=== PATIENT | male | born 1965 | race Caucasian/White ===

== ENCOUNTER 2019-06-17 20:00 | Outpatient (CLI) | payer BC, SELFPAY | END 2019-06-17 20:01 | disposition home or self-care (01) | LOC: SLEEP 06-18 09:30 | PROVIDERS: Family Provider Family Medicine; PCP Family Medicine; Visit Provider Nurse Practitioner Family | DX: G47.33 Obstructive sleep apnea (adult) (pediatric) (principal) | CPT/HCPCS: 95810; 95811 ==

== ENCOUNTER → 2019-06-23 13:11 | Outpatient (BNVA) | payer BC, SELFPAY | PROVIDERS: Family Provider Family Medicine; PCP Family Medicine; Visit Provider Internal Medicine Rheumatology | DX: L40.50 Arthropathic psoriasis, unspecified (principal); M19.90 Unspecified osteoarthritis, unspecified site; Z79.899 Other long term (current) drug therapy; M54.89 Other dorsalgia; L40.9 Psoriasis, unspecified | CPT/HCPCS: 36415; 80076; 82565; 85025; 85651; 86140; 86812; 99214 ==

== ENCOUNTER 2019-06-24 11:40 | Outpatient (CLI) | payer BC, SELFPAY ==
--- NOTE | 2019-06-24 11:52 | XR_ITS ---
WS: [id number] HAND LEFT TECHNIQUE: 3 views of the left hand CLINICAL INFORMATION: inflammatory arthritis COMPARISON: None. FINDINGS: Normal metacarpals. Normal MCP joint. Metacarpal heads are normal in appearance. Normal PIP and DIP j oints. No evidence of acute fracture or dislocation. Small radiopaque fragment second digit soft tiss ues. Radiocarpal joint: Normal. Carpal bones: Normal. XR/XR hand LT min 3V* [id number] IMPRESSION: Small radiopaque fragment second digit soft tissues. Left hand otherwise negati ve.
--- NOTE | 2019-06-24 11:52 | XR_ITS ---
WS: [id number] HAND RIGHT TECHNIQUE: 3 views of the right hand CLINICAL INFORMATION: inflammatory arthritis COMPARISON: None. FINDINGS: Normal metacarpals. Normal MCP joint. Metacarpal heads are normal in appearance. Normal PIP and DIP j oints. No evidence of acute fracture or dislocation. Radiocarpal joint: Normal. Carpal bones: Normal. XR/XR hand RT min 3V* [id number] IMPRESSION: Normal right hand.
--- NOTE | 2019-06-24 11:52 | XR_ITS ---
WS: [id number] PELVIS TECHNIQUE: 1 view(s) of the pelvis CLINICAL INFORMATION: inflammatory arthritis COMPARISON: None. FINDINGS: Mild degenerative arthritis both hips with joint space narrowing. Mild degenerative arthritis lower l umbar spine and sacroiliac joints. No acute fractures. No visualized erosive changes. XR/XR pelvis 1-2V* [id number] IMPRESSION: Mild degenerative arthritis as described above. No erosive changes.
== END 2019-06-24 11:41 | disposition home or self-care (01) ==
LOC: WPI 11:46
PROVIDERS: Family Provider Family Medicine; PCP Family Medicine; Visit Provider Internal Medicine Rheumatology
DX: M16.0 Bilateral primary osteoarthritis of hip (principal); M79.9 Soft tissue disorder, unspecified
CPT/HCPCS: 72170; 73130

== ENCOUNTER → 2019-07-08 09:42 | Outpatient (BNVA) | payer BC, SELFPAY | PROVIDERS: Family Provider Family Medicine; PCP Family Medicine; Referring Provider Family Medicine; Visit Provider Internal Medicine Rheumatology | DX: L40.50 Arthropathic psoriasis, unspecified (principal); Z11.59 Encounter for screening for other viral diseases; Z79.899 Other long term (current) drug therapy; L40.9 Psoriasis, unspecified; M19.90 Unspecified osteoarthritis, unspecified site | CPT/HCPCS: 36415; 86704; 86803; 87340; 99213 ==

== ENCOUNTER → 2019-08-17 13:22 | Outpatient (BNVA) | payer BC, SELFPAY | PROVIDERS: Family Provider Family Medicine; PCP Family Medicine; Visit Provider Internal Medicine Rheumatology | DX: L40.50 Arthropathic psoriasis, unspecified (principal); Z79.899 Other long term (current) drug therapy | CPT/HCPCS: 36415; 80076; 82565; 85651; 86140 ==

== ENCOUNTER → 2019-08-17 13:30 | Outpatient (BNVA) | payer BC, SELFPAY | PROVIDERS: Family Provider Family Medicine; PCP Family Medicine; Visit Provider Internal Medicine Rheumatology | DX: L40.50 Arthropathic psoriasis, unspecified (principal); Z79.899 Other long term (current) drug therapy | CPT/HCPCS: 85025 ==

== ENCOUNTER 2019-10-27 13:30 | Outpatient (CLI) | payer BC, SELFPAY ==
--- NOTE | 2019-10-27 14:17 | XR_ITS ---
WS: [id number] RIGHT KNEE: 2 VIEW(S) TECHNIQUE: AP and lateral. HISTORY: PAIN IN RIGHT KNEE COMPARISON: None available. No fracture or dislocation. Moderate narrowing of the medial compartment. Large osteophytes along the joint surface from the supe rior and inferior patella. There are large mineralized loose bodies in the suprapatellar region and also in the posterior joint space. The largest measures 2.6 cm. Small joint effusion. No soft tissue abnormality. XR/XR knee RT 1-2V 13848 IMPRESSION: 1. Intra-articular loose bodies with the largest measuring 2.6 cm. 2. Moderate osteoarthritis at the medial and patellofemoral joint spaces.
== END 2019-10-27 13:31 | disposition home or self-care (01) ==
LOC: RADWPI 13:35
PROVIDERS: Family Provider Family Medicine; PCP Family Medicine; Visit Provider Nurse Practitioner Family
DX: M25.561 Pain in right knee (principal); M17.11 Unilateral primary osteoarthritis, right knee
CPT/HCPCS: 73560

== ENCOUNTER → 2019-11-29 09:14 | Outpatient (BNVA) | payer BC, SELFPAY | PROVIDERS: Family Provider Family Medicine; PCP Family Medicine; Visit Provider Internal Medicine Rheumatology | DX: L40.50 Arthropathic psoriasis, unspecified (principal); M19.90 Unspecified osteoarthritis, unspecified site; Z79.899 Other long term (current) drug therapy | CPT/HCPCS: 36415; 80076; 82565; 85025; 85651; 86140 ==

== ENCOUNTER → 2019-12-07 10:35 | Outpatient (BNVA) | payer BC, SELFPAY | PROVIDERS: Family Provider Family Medicine; PCP Nurse Practitioner Family; Referring Provider Nurse Practitioner Family; Visit Provider Anesthesiology Pain Medicine | DX: L40.50 Arthropathic psoriasis, unspecified (principal); L40.0 Psoriasis vulgaris; Z79.899 Other long term (current) drug therapy; M19.90 Unspecified osteoarthritis, unspecified site; M51.36 Other intervertebral disc degeneration, lumbar region; M47.26 Other spondylosis with radiculopathy, lumbar region; M47.816 Spondylosis without myelopathy or radiculopathy, lumbar region; M54.42 Lumbago with sciatica, left side; M54.89 Other dorsalgia; M62.830 Muscle spasm of back; F17.220 Nicotine dependence, chewing tobacco, uncomplicated | CPT/HCPCS: 99204; 99214 ==

== ENCOUNTER → 2019-12-17 09:48 | Outpatient (BNVA) | payer BC, SELFPAY | PROVIDERS: Family Provider Family Medicine; PCP Nurse Practitioner Family; Visit Provider Anesthesiology Pain Medicine | DX: M47.816 Spondylosis without myelopathy or radiculopathy, lumbar region (principal); M54.89 Other dorsalgia; F17.220 Nicotine dependence, chewing tobacco, uncomplicated; Z79.891 Long term (current) use of opiate analgesic | CPT/HCPCS: 64493; 64494; 64495; J3490 ==

== ENCOUNTER → 2019-12-31 08:44 | Outpatient (BNVA) | payer BC, SELFPAY | PROVIDERS: Family Provider Family Medicine; PCP Nurse Practitioner Family; Visit Provider Anesthesiology Pain Medicine | DX: M47.816 Spondylosis without myelopathy or radiculopathy, lumbar region (principal); M54.16 Radiculopathy, lumbar region; M51.36 Other intervertebral disc degeneration, lumbar region; M54.89 Other dorsalgia; M79.605 Pain in left leg; M62.830 Muscle spasm of back; Z79.899 Other long term (current) drug therapy; F17.220 Nicotine dependence, chewing tobacco, uncomplicated | CPT/HCPCS: 99213 ==

== ENCOUNTER 2020-01-18 09:42 | Outpatient (CLI) | payer BC, SELFPAY ==
--- NOTE | 2020-01-18 10:00 | CT_ITS ---
WS: [id number] CT LUMBAR SPINE, noncontrast. HISTORY: pain TECHNIQUE: Contiguous 2.5 mm axial imaging are performed. Sagittal and coronal reformats are submitte d and reviewed. All CT scans at [facility] use at least one of these dose optimization te chniques: automated exposure control; mA and/or kV adjustment per patient size (includes targeted exa ms where dose is matched to clinical indication); or iterative reconstruction. IV contrast: None DLP: 2543.74 mGy.cm COMPARISON: None available. Quality of this examination is limited by body habitus. Mild straightening of the normal lumbar lordosis. 2 mm retrolisthesis of L2 and L3. Vacuum disc pheno roberto carlos at L3-4 and L4-5. Very mild anterior wedging of L1. No acute fractures. L1-2: Mild osteophytic ridging without stenosis. L2-3: Mild annular disc bulging with a central posterior calcification or disc ossification centrally . Moderate central with mild bilateral subarticular recess stenosis. L3-4: Mild annular disc bulging and osteophytosis. Significant encroachment upon the ventral thecal s ac. Effacement of fat in the subarticular recesses with moderate bilateral foraminal stenosis, RIGHT greater than LEFT. L4-5: Diffuse annular disc bulging and osteophytic ridging. Disc osteophyte complex extends into the LEFT subarticular recess and into the foramen. Mild central stenosis with severe LEFT foraminal steno sis and moderate RIGHT foraminal stenosis. Degenerative air in mildly widened LEFT facet joint. L5-S1: Mild annular disc bulging and osteophytic ridging. Moderate bilateral foraminal stenosis, LEFT greater than RIGHT. Degenerative air within a wide LEFT facet joint. Small amount of degenerative air in the SI joints. Visualized retroperitoneum is negative. CT/CT lumbar spine wo con* [id number] IMPRESSION: 1. Study is limited by body habitus. 2. Multilevel central and foraminal stenoses. 3. Moderate central with bilateral subarticular recess stenosis at L2-3. 4. Moderate bilateral foraminal stenosis RIGHT greater than LEFT at L3-4. 5. Severe LEFT foraminal and moderate RIGHT foraminal stenosis at L4-5. 6. Moderate bilateral foraminal stenosis at L5-S1. 7. Degenerative air and widening of the LEFT L4-5 and L5-S1 facet joints.
== END 2020-01-18 09:43 | disposition home or self-care (01) ==
LOC: RADWPI 09:47 → RAD 10:51
PROVIDERS: Family Provider Family Medicine; PCP Family Medicine; Visit Provider Anesthesiology Pain Medicine
DX: M54.5 Low back pain (principal); G89.29 Other chronic pain; M48.061 Spinal stenosis, lumbar region without neurogenic claudication
CPT/HCPCS: 72131

== ENCOUNTER → 2020-01-26 13:16 | Outpatient (BNVA) | payer BC, SELFPAY | PROVIDERS: Family Provider Family Medicine; PCP Nurse Practitioner Family; Visit Provider Anesthesiology Pain Medicine | DX: M51.36 Other intervertebral disc degeneration, lumbar region (principal); M54.16 Radiculopathy, lumbar region; M54.89 Other dorsalgia | CPT/HCPCS: 64483; 64484; J1030; J3490 ==

== ENCOUNTER → 2020-05-09 09:50 | Outpatient (BNVA) | payer BC, SELFPAY | PROVIDERS: Family Provider Family Medicine; PCP Nurse Practitioner Family; Visit Provider Internal Medicine Rheumatology | DX: L40.50 Arthropathic psoriasis, unspecified (principal); Z79.899 Other long term (current) drug therapy; L40.0 Psoriasis vulgaris; M51.36 Other intervertebral disc degeneration, lumbar region; M54.16 Radiculopathy, lumbar region; F17.220 Nicotine dependence, chewing tobacco, uncomplicated | CPT/HCPCS: 36415; 80076; 82565; 85025; 85651; 86140; 99214 ==

== ENCOUNTER → 2020-05-11 14:39 | Outpatient (BNVA) | payer BC, SELFPAY | PROVIDERS: Family Provider Family Medicine; PCP Nurse Practitioner Family; Visit Provider Anesthesiology Pain Medicine | DX: M51.36 Other intervertebral disc degeneration, lumbar region (principal); M47.816 Spondylosis without myelopathy or radiculopathy, lumbar region; M54.16 Radiculopathy, lumbar region; M54.89 Other dorsalgia; M62.830 Muscle spasm of back; F17.220 Nicotine dependence, chewing tobacco, uncomplicated; Z79.891 Long term (current) use of opiate analgesic | CPT/HCPCS: 99212 ==

== ENCOUNTER → 2020-05-15 13:29 | Outpatient (BNVA) | payer BC, SELFPAY | PROVIDERS: Family Provider Family Medicine; PCP Nurse Practitioner Family; Visit Provider Anesthesiology Pain Medicine | DX: M54.16 Radiculopathy, lumbar region (principal); M54.89 Other dorsalgia; F17.210 Nicotine dependence, cigarettes, uncomplicated; Z79.891 Long term (current) use of opiate analgesic | CPT/HCPCS: 64483; 64484; J1100; J3490 ==

== ENCOUNTER → 2020-05-30 10:40 | Outpatient (BNVA) | payer BC, SELFPAY | PROVIDERS: Family Provider Family Medicine; PCP Nurse Practitioner Family; Visit Provider Anesthesiology Pain Medicine | DX: M54.89 Other dorsalgia (principal); M47.816 Spondylosis without myelopathy or radiculopathy, lumbar region; M54.16 Radiculopathy, lumbar region; M62.830 Muscle spasm of back; M51.36 Other intervertebral disc degeneration, lumbar region; F17.220 Nicotine dependence, chewing tobacco, uncomplicated; Z79.891 Long term (current) use of opiate analgesic | CPT/HCPCS: 99213 ==

== ENCOUNTER → 2020-09-26 09:29 | Outpatient (BNVA) | payer OTHER, SELFPAY | PROVIDERS: Family Provider Family Medicine; PCP Nurse Practitioner Family; Visit Provider Internal Medicine Rheumatology | DX: L40.50 Arthropathic psoriasis, unspecified (principal); L40.0 Psoriasis vulgaris; Z79.899 Other long term (current) drug therapy; M19.90 Unspecified osteoarthritis, unspecified site; M51.36 Other intervertebral disc degeneration, lumbar region; M54.16 Radiculopathy, lumbar region; G47.33 Obstructive sleep apnea (adult) (pediatric); F17.210 Nicotine dependence, cigarettes, uncomplicated | CPT/HCPCS: 36415; 80076; 82565; 85025; 86140; 99214 ==

== ENCOUNTER → 2020-11-28 09:00 | Outpatient (BNVA) | payer OTHER, SELFPAY | PROVIDERS: Family Provider Family Medicine; PCP Nurse Practitioner Family; Visit Provider Anesthesiology Pain Medicine | DX: M54.89 Other dorsalgia (principal); M47.816 Spondylosis without myelopathy or radiculopathy, lumbar region; M54.16 Radiculopathy, lumbar region; M62.830 Muscle spasm of back; M51.36 Other intervertebral disc degeneration, lumbar region; Z79.891 Long term (current) use of opiate analgesic | CPT/HCPCS: 99214 ==

== ENCOUNTER → 2020-12-08 13:16 | Outpatient (BNVA) | payer OTHER, SELFPAY | PROVIDERS: Family Provider Family Medicine; PCP Nurse Practitioner Family; Visit Provider Anesthesiology Pain Medicine | DX: M54.16 Radiculopathy, lumbar region (principal); M54.89 Other dorsalgia; Z79.891 Long term (current) use of opiate analgesic | CPT/HCPCS: 64483; 64484; J1100; J3490 ==

== ENCOUNTER → 2020-12-22 10:05 | Outpatient (BNVA) | payer OTHER, SELFPAY | PROVIDERS: Family Provider Family Medicine; PCP Nurse Practitioner Family; Visit Provider Anesthesiology Pain Medicine | DX: M47.816 Spondylosis without myelopathy or radiculopathy, lumbar region (principal); M51.36 Other intervertebral disc degeneration, lumbar region; M54.16 Radiculopathy, lumbar region; M54.89 Other dorsalgia; M62.830 Muscle spasm of back; M79.605 Pain in left leg; Z79.891 Long term (current) use of opiate analgesic | CPT/HCPCS: 99214 ==

== ENCOUNTER → 2021-01-01 10:15 | Outpatient (BNVA) | payer OTHER, SELFPAY | PROVIDERS: Family Provider Family Medicine; PCP Nurse Practitioner Family; Visit Provider Internal Medicine Rheumatology | DX: L40.9 Psoriasis, unspecified (principal); M19.90 Unspecified osteoarthritis, unspecified site; M54.89 Other dorsalgia; Z71.89 Other specified counseling; Z79.899 Other long term (current) drug therapy | CPT/HCPCS: 36415; 80076; 82565; 85025; 86140 ==

== ENCOUNTER → 2021-01-11 08:45 | Outpatient (BNVA) | payer OTHER, SELFPAY | PROVIDERS: Family Provider Family Medicine; PCP Nurse Practitioner Family; Visit Provider Internal Medicine Rheumatology | DX: L40.50 Arthropathic psoriasis, unspecified (principal); L40.0 Psoriasis vulgaris; Z79.899 Other long term (current) drug therapy; M47.816 Spondylosis without myelopathy or radiculopathy, lumbar region; M51.36 Other intervertebral disc degeneration, lumbar region; G47.33 Obstructive sleep apnea (adult) (pediatric) | CPT/HCPCS: 99214 ==

== ENCOUNTER → 2021-03-28 10:47 | Outpatient (BNVA) | payer OTHER, SELFPAY | PROVIDERS: Family Provider Family Medicine; PCP Nurse Practitioner Family; Visit Provider Anesthesiology Pain Medicine | DX: M47.816 Spondylosis without myelopathy or radiculopathy, lumbar region (principal); M54.16 Radiculopathy, lumbar region; M51.36 Other intervertebral disc degeneration, lumbar region; M54.89 Other dorsalgia; M62.830 Muscle spasm of back; M79.605 Pain in left leg; Z79.891 Long term (current) use of opiate analgesic | CPT/HCPCS: 99214 ==

== ENCOUNTER → 2021-04-17 12:51 | Outpatient (BNVA) | payer OTHER, SELFPAY | PROVIDERS: Family Provider Family Medicine; PCP Nurse Practitioner Family; Visit Provider Anesthesiology Pain Medicine | DX: M47.816 Spondylosis without myelopathy or radiculopathy, lumbar region (principal); M54.16 Radiculopathy, lumbar region; M54.89 Other dorsalgia; Z79.891 Long term (current) use of opiate analgesic | CPT/HCPCS: 64493; 64494; 64495; J3490 ==

== ENCOUNTER → 2021-05-01 10:18 | Outpatient (BNVA) | payer OTHER, SELFPAY | PROVIDERS: Family Provider Family Medicine; PCP Nurse Practitioner Family; Visit Provider Internal Medicine Rheumatology | DX: M19.90 Unspecified osteoarthritis, unspecified site (principal); Z79.899 Other long term (current) drug therapy | CPT/HCPCS: 36415; 80076; 82565; 85025; 86140 ==

== ENCOUNTER → 2021-05-08 10:05 | Outpatient (BNVA) | payer OTHER, SELFPAY | PROVIDERS: Family Provider Family Medicine; PCP Nurse Practitioner Family; Visit Provider Anesthesiology Pain Medicine | DX: M47.816 Spondylosis without myelopathy or radiculopathy, lumbar region (principal); M54.16 Radiculopathy, lumbar region; M51.36 Other intervertebral disc degeneration, lumbar region; M54.89 Other dorsalgia; M62.830 Muscle spasm of back; Z79.891 Long term (current) use of opiate analgesic; M79.605 Pain in left leg | CPT/HCPCS: 99214 ==

== ENCOUNTER → 2021-11-28 14:03 | Outpatient (BNVA) | payer OTHER, SELFPAY | PROVIDERS: Family Provider Family Medicine; PCP Nurse Practitioner Family; Visit Provider Internal Medicine Rheumatology | DX: L40.50 Arthropathic psoriasis, unspecified (principal); Z79.899 Other long term (current) drug therapy | CPT/HCPCS: 80076; 82565; 85025; 86140 ==

== ENCOUNTER → 2022-03-21 14:35 | Outpatient (BNVA) | payer OTHER, SELFPAY | PROVIDERS: Family Provider Family Medicine; PCP Nurse Practitioner Family; Visit Provider Internal Medicine Rheumatology | DX: Z79.899 Other long term (current) drug therapy (principal); M19.90 Unspecified osteoarthritis, unspecified site; L40.50 Arthropathic psoriasis, unspecified; L40.0 Psoriasis vulgaris; Z71.89 Other specified counseling | CPT/HCPCS: 36415; 80076; 82565; 85025; 86140 ==

== ENCOUNTER 2023-03-10 10:02 | Outpatient (CLI) | payer OTHER, SELFPAY ==
--- NOTE | 2023-03-10 10:10 | XR_ITS ---
WS: [id number] EXAMINATION: XR foot LT 2V [id number] REASON FOR EXAM: PAIN IN LEFT FOOT COMPARISON: None available. ORDER DATE: 03/10/2023 10:11 AM TECHNIQUE: 3 views of the left foot were obtained. X-RAY FINDINGS: There are no fractures or dislocations. No focal abnormal soft tissue swelling. Joint spaces are pres erved. Dorsal and plantar calcaneal spurs are demonstrated IMPRESSION: No fractures or dislocations of the left foot.
== END 2023-03-10 10:03 | disposition home or self-care (01) ==
LOC: LAB 10:08
PROVIDERS: Absent Provider Nurse Practitioner Family; Family Provider Family Medicine; PCP Nurse Practitioner Family; Visit Provider Nurse Practitioner Family
DX: M79.672 Pain in left foot (principal)
CPT/HCPCS: 73620

== ENCOUNTER → 2023-03-20 14:22 | Outpatient (BNVA) | payer OTHER, SELFPAY | PROVIDERS: Family Provider Family Medicine; PCP Nurse Practitioner Family; Visit Provider Internal Medicine Rheumatology | DX: M19.90 Unspecified osteoarthritis, unspecified site (principal); Z79.899 Other long term (current) drug therapy; L40.50 Arthropathic psoriasis, unspecified; Z71.89 Other specified counseling; L40.0 Psoriasis vulgaris | CPT/HCPCS: 80076; 82565; 85025; 86140 ==

== ENCOUNTER → 2023-04-02 12:21 | Outpatient (BNVA) | payer OTHER, SELFPAY | PROVIDERS: Family Provider Family Medicine; PCP Nurse Practitioner Family; Visit Provider Internal Medicine | DX: R07.9 Chest pain, unspecified (principal); I48.91 Unspecified atrial fibrillation | CPT/HCPCS: 93005 ==

== ENCOUNTER 2023-04-08 07:17 | Outpatient (CLI) | payer OTHER, SELFPAY ==
--- NOTE | 2023-04-08 07:40 | ECG_ITS ---
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 Interpretive Statements NAME OF STUDY: LEXISCAN SESTAMIBI STRESS TEST INDICATION: [CP/SOB, ] Procedure: At the baseline, the blood pressure was 151/96 mmHg with a heart rate of 109 bpm. The electrocardiogram showed atrial fibrillation with RVR, normal axis with normal ST and T's. The Lexiscan was infused over a period of 20 seconds. A total of 0.4 mg of Lexiscan was infused. The stress phase was continued for a total of 5 minutes. Heart rate was at the end of stress phase was 109 bpm and a blood pressure of 173/91 mmHg. The EKG at the peak infusion revealed atrial fibrillation with no significant ST-T wave changes. Sestamibi was injected 20 seconds after the Lexiscan infusion. Blood pressure at the end of recovery phase was 161/77 mmHg with a heart rate of 113 bpm. Conclusion: 1. Normal EKG response to Lexiscan infusion 2. No Lexiscan induced chest pain or cardiac arrhythmia. 3. Normal blood pressure and heart rate response. 4. Sestamibi/sestamibi perfusion scan pending; see separate report. Electronically Signed On 04-12-2023 20:43:08 CDT by Alfredo Rivas M.D. [id number]
--- NOTE | 2023-04-08 07:40 | NMCV_ITS ---
NM basia perf SPECT r/s* [id number] Ronnie Killian Age: 58 Gender: M : 1965 Exam Date: 04/08/2023 08:28 Ordering Phys: Alfredo Rivas M.D ([email or web address]) Technologist: BOLA Martinez Exam Location: [facility] Indications: CHEST PAIN, SHORTNESS OF BREATH STRESS TEST [facility] IMAGE PROTOCOL Rest/Stress 1 Lexiscan Day Radiopharmaceutical Dose (mCi) Administration Site Administered by Rest: Tc-99m 10.8 IV BOLA Trevizo Sestamibi Stress:Tc-99m 33.0 IV BOLA Trevizo Sestamibi Rest: 08-Apr-2023 60 Discovery 630 Stress: 08-Apr-2023 30 Discovery 630 0.4mg Lexiscan. Images obtained in supine and prone position. SPECT RESULTS Technical Quality: Excellent Raw Data Analysis: Normal Image Corrections: No attenuation or motion correction applied Summed Stress Score: 4 Summed Rest Score: 7 Summed Difference Score: 2 PERFUSION FINDINGS There is a small sized, partially reversible perfusion defect noted in the inferior wall. This is consistent with small area of prior infarct with minimal terrance-infarct ischemia in RCA territory. FUNCTIONAL RESULTS (calculated via Gated SPECT) Stress Image LV EF (%): 36 Stress EDV (mL):168 TID: 0.93 Stress ESV (mL):107 FUNCTIONAL FINDINGS: LV systolic function is moderately reduced with EF of 36% IMPRESSIONS 1. Small sized area of prior infarct with minimal terrance-infarct ischemia in RCA territory. 2. LV systolic function is moderately reduced with EF of 36% Alfredo Rivas MD (Electronically Signed) Final Date: 08 April 2023 11:50 S
[2023-04-08 07:41] VITALS: BMI 55.6
[2023-04-08] MEDS: regadenoson 0.4 Mg/5 ml Syringe IVP (09:08)
[2023-04-08 09:19] VITALS: BP 134/85; PULSE 112
== END 2023-04-08 07:18 | disposition home or self-care (01) ==
LOC: CDL 07:18
PROVIDERS: PCP Nurse Practitioner Family; Visit Provider Internal Medicine
DX: R07.9 Chest pain, unspecified (principal); R06.02 Shortness of breath; I25.2 Old myocardial infarction
CPT/HCPCS: 36415; 78452; 93017; 96374; A9500; J2785

== ENCOUNTER 2023-04-17 08:45 | Outpatient (CLI) | payer OTHER, SELFPAY ==
--- NOTE | 2023-04-17 09:00 | USCV_ITS ---
Ronnie Killian Age: 58 Gender: M : 1965 Exam Date: 04/17/2023 08:52 Ordering Phys: Alfredo Rivas M.D ([email or web address]) Technologist: [place] [facility] [place]: pre op BP: 126 / 73 HR: 100 Rhythm: Sinus Technical Quality: Adequate MEASUREMENTS (Male / Female) Normal Values 2D ECHO LVOT Diameter 2.2 cm LV Ejection Fraction MOD 2C 64.8 % LV Ejection Fraction 2C AL 67.0 % LA Diameter 4.5 cm M-MODE MV E Point Septal Separation 1.5 cm DOPPLER MV Area PHT 5.1 cm squared Mitral E to A Ratio 2.1 MV E' Velocity 49.0 cm/s Mitral E to MV E' Ratio 7.4 Mitral E to LV E' Lateral Ratio 7.7 Mitral E to LV E' Septal Ratio 7.1 FINDINGS Left Ventricle Right Ventricle Right Atrium Left Atrium Mitral Valve Aortic Valve Tricuspid Valve Pulmonic Valve Pericardium Aorta IVC CONCLUSIONS Technically very limited quality echocardiogram because of poor ultrasonic windows. Contrast agent was used LV systolic function is normal with EF 55 to 60%. No regional wall motion abnormalities are seen. Valvular structures could not be well visualized. No comparison studies are available. Alfredo Rivas MD (Electronically Signed) Final Date: 17 April 2023 11:12 S
[2023-04-17] MEDS: perflutren protein-a microsphr 0.22 mg/mL SDV 3 mL IV (09:13)
== END 2023-04-17 08:46 | disposition home or self-care (01) ==
LOC: RAD 08:45
PROVIDERS: PCP Nurse Practitioner Family; Visit Provider Internal Medicine
DX: Z01.810 Encounter for preprocedural cardiovascular examination (principal); R06.02 Shortness of breath; R07.9 Chest pain, unspecified
CPT/HCPCS: C8929; Q9956

== ENCOUNTER 2023-04-30 12:21 | Oncology outpatient (recurring) (ONCR) | payer OTHER, SELFPAY ==
[2023-04-30] VITALS (7 sets, daily range): BP systolic 111–138; BP diastolic 69–97; PULSE 74–105; RESP 17–18; TEMP 35.6–36.8; O2SAT 94–98
[2023-04-30] MEDS: acetaminophen 325 mg Tablet 650 MG PO (13:04)
[2023-04-30] MEDS: sodium chloride 0.9% 250 ML 75 ML IV (13:05)
[2023-04-30] MEDS: diphenhydrAMINE 50 mg/mL SDV 1mL 25 MG IVP (13:05)
[2023-04-30] MEDS: methylPREDNISolone sod succ 40 mg/mL INJ IVP (13:05)
== END 2023-05-08 23:59 | disposition home or self-care (01) ==
PROVIDERS: PCP Nurse Practitioner Family; Visit Provider Internal Medicine Rheumatology
DX: L40.50 Arthropathic psoriasis, unspecified (principal)
CPT/HCPCS: 96413; 96415; J1200; J2920; J7050; Q5104

== ENCOUNTER 2023-05-14 13:00 | Oncology outpatient (recurring) (ONCR) | payer OTHER, SELFPAY ==
[2023-05-14] VITALS (7 sets, daily range): BP systolic 115–139; BP diastolic 78–104; PULSE 64–88; RESP 16–18; TEMP 35.6–36.6; O2SAT 94–97
[2023-05-14 14:21] LABS: Basophils % 0.7 %; Eosinophils # 0.1 10^3/uL (0.0-0.8); Eosinophils % 1.2 %; Hematocrit 48.2 % (37-53); Lymphocytes % 16.4 %; Mean Corpuscular HGB Conc 32.2 g/dL (30-55); Mean Corpuscular Hemoglobin 30.9 pg (27-33); Mean Platelet Volume 10.3 fL (7.4-10.4); Monocytes # 0.5 10^3/uL (0.2-0.9); Neutrophils # 4.33 10^3/uL (1.8-7.7); Neutrophils % 72.4 %; Nucleated Red Blood Cells % 0 %; Platelet Count 138 10^3/cmm (157-399); Red Blood Count 5.02 10^6/uL (3.85-5.65); Red Cell Distribution Width 13.9 % (12.1-15.1); White Blood Count 5.98 10^3/uL (3.29-11.43)
[2023-05-14] MEDS: acetaminophen 325 mg Tablet 650 MG PO (14:28)
[2023-05-14] MEDS: sodium chloride 0.9% 500 ML 75 ML IV (14:32)
[2023-05-14] MEDS: diphenhydrAMINE 50 mg/mL SDV 1mL 25 MG IVP (14:32)
[2023-05-14 14:33] LABS: Erythrocyte Sedimentation Rate 5 mm/hr (0-10)
[2023-05-14 14:34] LABS: Glomerular Filtration Rate 86.4 mL/min (90-130)
[2023-05-14] MEDS: methylPREDNISolone sod succ 40 mg/mL INJ IVP (14:42)
== END 2023-06-08 23:59 | disposition home or self-care (01) ==
PROVIDERS: PCP Nurse Practitioner Family; Visit Provider Internal Medicine Rheumatology
DX: L40.0 Psoriasis vulgaris (principal)
CPT/HCPCS: 82565; 85025; 85651; 86140; 96375; 96413; 96415; J1200; J2920; J7040; J7050; Q5104

== ENCOUNTER → 2023-07-03 12:38 | Outpatient (BNVA) | payer BC, SELFPAY | PROVIDERS: PCP Nurse Practitioner Family; Visit Provider Internal Medicine Rheumatology | DX: Z79.899 Other long term (current) drug therapy (principal); M19.90 Unspecified osteoarthritis, unspecified site; L40.50 Arthropathic psoriasis, unspecified | CPT/HCPCS: 36415; 80076; 82565; 85025; 86140 ==

== ENCOUNTER 2023-08-28 06:00 | Outpatient (RCR) | payer BC, SELFPAY | END 2023-09-07 23:59 | disposition home or self-care (01) | LOC: APT 06:00 | PROVIDERS: Visit Provider Podiatrist Foot & Ankle Surgery | DX: M95.8 Other specified acquired deformities of musculoskeletal system (principal) | CPT/HCPCS: 97035; 97110; 97140; 97161 ==

== ENCOUNTER 2023-09-08 06:00 | Outpatient (RCR) | payer BC, SELFPAY | END 2023-10-07 23:59 | disposition home or self-care (01) | LOC: APT 06:00 | PROVIDERS: Visit Provider Podiatrist Foot & Ankle Surgery | DX: M95.8 Other specified acquired deformities of musculoskeletal system (principal) | CPT/HCPCS: 97035; 97110; 97140 ==

== ENCOUNTER → 2023-10-16 14:25 | Outpatient (BNVA) | payer BC, SELFPAY | PROVIDERS: PCP Nurse Practitioner Family; Visit Provider Internal Medicine Rheumatology | DX: Z79.899 Other long term (current) drug therapy (principal); L40.50 Arthropathic psoriasis, unspecified | CPT/HCPCS: 36415; 80076; 82565; 85025; 86140 ==

== ENCOUNTER → 2023-12-05 08:01 | Outpatient (BNVA) | payer BC, SELFPAY | PROVIDERS: PCP Nurse Practitioner Family; Visit Provider Internal Medicine Rheumatology | DX: Z11.59 Encounter for screening for other viral diseases (principal); Z11.1 Encounter for screening for respiratory tuberculosis | CPT/HCPCS: 86480; 86704; 86803; 87340 ==

== ENCOUNTER 2023-12-25 09:23 | Oncology outpatient (recurring) (ONCR) | payer BC, SELFPAY ==
[2023-12-25] VITALS (7 sets, daily range): BP systolic 102–119; BP diastolic 72–86; PULSE 72–81; RESP 16–18; TEMP 36–36.6; O2SAT 95–98
[2023-12-25] MEDS: acetaminophen 325 mg Tablet 650 MG PO (10:02)
[2023-12-25] MEDS: sodium chloride 0.9% 250 ML 75 ML IV (10:03)
[2023-12-25] MEDS: diphenhydrAMINE 50 mg/mL SDV 1mL 25 MG IVP (10:04)
[2023-12-25] MEDS: methylPREDNISolone sod succ 40 mg/mL INJ IVP (10:08)
== END 2024-01-07 23:59 | disposition home or self-care (01) ==
PROVIDERS: PCP Nurse Practitioner Family; Visit Provider Internal Medicine Rheumatology
DX: L40.0 Psoriasis vulgaris (principal); Z79.620 Long term (current) use of immunosuppressive biologic
CPT/HCPCS: 96375; 96413; 96415; A4222; J1200; J1745; J2919; J7050

== ENCOUNTER 2024-02-05 07:50 | Oncology outpatient (recurring) (ONCR) | payer BC, SELFPAY ==
[2024-02-05] VITALS (8 sets, daily range): BP systolic 118–139; BP diastolic 74–99; PULSE 62–83; RESP 16; TEMP 35.8–36.3; O2SAT 93–98
[2024-02-05 08:32] LABS: Basophils % 0.4 %; Eosinophils # 0.1 10^3/uL (0.0-0.8); Eosinophils % 1.1 %; Hematocrit 47.2 % (37-53); Lymphocytes % 35.8 %; Mean Corpuscular HGB Conc 33.7 g/dL (30-55); Mean Corpuscular Hemoglobin 31.9 pg (27-33); Mean Corpuscular Volume 94.8 fl (82-101); Mean Platelet Volume 10.8 fL (7.4-10.4); Monocytes # 0.5 10^3/uL (0.2-0.9); Monocytes % 9.6 %; Neutrophils # 2.91 10^3/uL (1.8-7.7); Neutrophils % 52.7 %; Nucleated Red Blood Cells % 0 %; Platelet Count 128 10^3/cmm (157-399); Red Blood Count 4.98 10^6/uL (3.85-5.65); Red Cell Distribution Width 13.2 % (12.1-15.1); White Blood Count 5.51 10^3/uL (3.29-11.43)
[2024-02-05] MEDS: acetaminophen 325 mg Tablet 650 MG PO (08:32)
[2024-02-05] MEDS: methylPREDNISolone sod succ 40 mg/mL INJ IVP (08:35)
[2024-02-05] MEDS: diphenhydrAMINE 50 mg/mL SDV 1mL 25 MG IVP (08:46)
[2024-02-05] MEDS: sodium chloride 0.9% 250 ML 75 ML IV (08:47)
[2024-02-05] MEDS: infliximab-abda 700 MG in sodium chloride 0.9% 250 ML 10 MG IV (09:55)
[2024-02-05 10:03] LABS: Alanine Aminotransferase 23 U/L (0-41); Albumin Level 3.7 g/dL (3.5-5.2); Alkaline Phosphatase 67 U/L (40-130); Aspartate Amino Transferase 17 U/L (0-40); Creatinine Clr Calc Pharmacy 159.1528; Globulin 2.2 g/dL (1.3-4.6); Glomerular Filtration Rate 115.4 mL/min (90-130); Total Bilirubin 0.4 mg/dL (0.15-1.2); Total Protein 5.9 g/dL (6.6-8.7)
== END 2024-02-07 23:59 | disposition home or self-care (01) ==
PROVIDERS: PCP Nurse Practitioner Family; Visit Provider Internal Medicine Rheumatology
DX: M19.90 Unspecified osteoarthritis, unspecified site (principal)
CPT/HCPCS: 80076; 82565; 85025; 96375; 96413; 96415; A4222; J1200; J2919; J7050; Q5104

== ENCOUNTER 2024-03-18 07:44 | Oncology outpatient (recurring) (ONCR) | payer BC, SELFPAY ==
[2024-03-18] VITALS (8 sets, daily range): BP systolic 117–135; BP diastolic 78–93; PULSE 60–90; RESP 16–17; TEMP 35.9–36.9; O2SAT 90–100
[2024-03-18] MEDS: sodium chloride 0.9% 250 ML 75 ML IV (08:10)
[2024-03-18] MEDS: methylPREDNISolone sod succ 40 mg/mL INJ IVP (08:12)
[2024-03-18] MEDS: acetaminophen 325 mg Tablet 650 MG PO (08:12)
[2024-03-18] MEDS: diphenhydrAMINE 50 mg/mL SDV 1mL 25 MG IVP (08:14)
[2024-03-18 08:20] LABS: Basophils % 0.8 %; Eosinophils # 0.1 10^3/uL (0.0-0.8); Eosinophils % 1.4 %; Hematocrit 47.5 % (37-53); Lymphocytes # 1.5 10^3/uL (0.8-4.8); Lymphocytes % 42.8 %; Mean Corpuscular HGB Conc 33.7 g/dL (30-55); Mean Corpuscular Hemoglobin 31.7 pg (27-33); Mean Corpuscular Volume 94.1 fl (82-101); Mean Platelet Volume 10.4 fL (7.4-10.4); Monocytes # 0.5 10^3/uL (0.2-0.9); Neutrophils # 1.43 10^3/uL (1.8-7.7); Neutrophils % 39.7 %; Nucleated Red Blood Cells % 0 %; Platelet Count 132 10^3/cmm (157-399); Red Blood Count 5.05 10^6/uL (3.85-5.65)
[2024-03-18 08:40] LABS: C Reactive Protein 3.6 mg/L (0.0-4.9); Creatinine Clr Calc Pharmacy 156.0356
[2024-03-18 08:49] LABS: Erythrocyte Sedimentation Rate 3 mm/hr (0-10)
== END 2024-04-08 23:59 | disposition home or self-care (01) ==
LOC: ONCMED 07:45
PROVIDERS: PCP Nurse Practitioner Family; Visit Provider Internal Medicine Rheumatology
DX: M19.90 Unspecified osteoarthritis, unspecified site (principal); Z79.899 Other long term (current) drug therapy; L40.50 Arthropathic psoriasis, unspecified; L40.0 Psoriasis vulgaris
CPT/HCPCS: 82565; 85025; 85651; 86140; 96375; 96413; 96415; A4222; J1200; J1745; J2919; J7050

== ENCOUNTER 2024-04-29 07:54 | Oncology outpatient (recurring) (ONCR) | payer BC, SELFPAY ==
[2024-04-29 08:20] VITALS: BP 126/85; PULSE 75; TEMP 36.8; O2SAT 95
[2024-04-29] MEDS: sodium chloride 0.9% 250 ML 75 ML IV (08:36)
[2024-04-29] MEDS: methylPREDNISolone sod succ 40 mg/mL INJ IVP (08:36)
[2024-04-29] MEDS: diphenhydrAMINE 50 mg/mL SDV 1mL 25 MG IVP (08:40)
[2024-04-29] MEDS: acetaminophen 325 mg Tablet 650 MG PO (08:41)
[2024-04-29] MEDS: infliximab-abda 700 MG in sodium chloride 0.9% 250 ML 250 MG IV (09:08)
[2024-04-29 10:24] VITALS: BP 134/92; PULSE 75; RESP 16; TEMP 36.4; O2SAT 96
== END 2024-05-08 23:59 | disposition home or self-care (01) ==
PROVIDERS: PCP Nurse Practitioner Family; Visit Provider Internal Medicine Rheumatology
DX: L40.0 Psoriasis vulgaris (principal); Z79.899 Other long term (current) drug therapy
CPT/HCPCS: 96375; 96413; A4222; J1200; J2919; J7050; Q5104

== ENCOUNTER 2024-06-10 11:40 | Oncology outpatient (recurring) (ONCR) | payer BC, SELFPAY ==
[2024-06-10 12:30] LABS: Basophils % 0.7 %; Eosinophils # 0.1 10^3/uL (0.0-0.8); Eosinophils % 1.2 %; Lymphocytes # 1.7 10^3/uL (0.8-4.8); Lymphocytes % 42.5 %; Mean Corpuscular HGB Conc 33.6 g/dL (30-55); Mean Corpuscular Hemoglobin 31.6 pg (27-33); Mean Corpuscular Volume 94.1 fl (82-101); Mean Platelet Volume 12.4 fL (7.4-10.4); Monocytes # 0.4 10^3/uL (0.2-0.9); Monocytes % 10.4 %; Nucleated Red Blood Cells % 0 %; Platelet Count 174 10^3/cmm (157-399); Red Blood Count 4.78 10^6/uL (3.85-5.65); Red Cell Distribution Width 13.2 % (12.1-15.1); White Blood Count 4.02 10^3/uL (3.29-11.43)
[2024-06-10 12:40] LABS: Erythrocyte Sedimentation Rate 3 mm/hr (0-10)
[2024-06-10 12:47] VITALS: BP 101/72; PULSE 90; RESP 18; TEMP 35.8; O2SAT 94
[2024-06-10 12:48] LABS: Creatinine Clr Calc Pharmacy 154.4521
[2024-06-10] MEDS: sodium chloride 0.9% 250 ML 75 ML IV (13:02)
[2024-06-10] MEDS: acetaminophen 325 mg Tablet 650 MG PO (13:03)
[2024-06-10] MEDS: methylPREDNISolone sod succ 40 mg/mL INJ IVP (13:04)
[2024-06-10] MEDS: diphenhydrAMINE 50 mg/mL SDV 1mL 25 MG IVP (13:09)
[2024-06-10 14:53] VITALS: BP 139/95; PULSE 72; TEMP 36.8; O2SAT 96
== END 2024-07-09 23:59 | disposition home or self-care (01) ==
PROVIDERS: PCP Nurse Practitioner Family; Visit Provider Internal Medicine Rheumatology
DX: L40.0 Psoriasis vulgaris (principal); M19.90 Unspecified osteoarthritis, unspecified site; Z79.899 Other long term (current) drug therapy
CPT/HCPCS: 82565; 85025; 85651; 86140; 96375; 96413; A4222; J1200; J1745; J2919; J7050

== ENCOUNTER → 2024-07-07 14:41 | Outpatient (BNVA) | payer BC, SELFPAY | PROVIDERS: PCP Nurse Practitioner Family; Visit Provider Internal Medicine Rheumatology | DX: L40.50 Arthropathic psoriasis, unspecified (principal); M50.31 Other cervical disc degeneration, high cervical region | CPT/HCPCS: 72040 ==

== ENCOUNTER 2024-07-22 07:53 | Oncology outpatient (recurring) (ONCR) | payer BC, SELFPAY ==
[2024-07-22 08:37] LABS: Basophils % 0.5 %; Eosinophils # 0.1 10^3/uL (0.0-0.8); Eosinophils % 1.2 %; Hematocrit 45.4 % (37-53); Lymphocytes # 1.7 10^3/uL (0.8-4.8); Lymphocytes % 39.9 %; Mean Corpuscular HGB Conc 33.9 g/dL (30-55); Mean Corpuscular Hemoglobin 31.4 pg (27-33); Mean Corpuscular Volume 92.7 fl (82-101); Mean Platelet Volume 10.6 fL (7.4-10.4); Monocytes # 0.4 10^3/uL (0.2-0.9); Monocytes % 10.6 %; Neutrophils # 1.97 10^3/uL (1.8-7.7); Neutrophils % 47.6 %; Nucleated Red Blood Cells % 0 %; Platelet Count 125 10^3/cmm (157-399); Red Cell Distribution Width 13.2 % (12.1-15.1); White Blood Count 4.14 10^3/uL (3.29-11.43)
[2024-07-22] MEDS: acetaminophen 325 mg Tablet 650 MG PO (08:45)
[2024-07-22] MEDS: sodium chloride 0.9% 250 ML 75 ML IV (08:46)
[2024-07-22] MEDS: diphenhydrAMINE 50 mg/mL SDV 1mL 25 MG IVP (08:48)
[2024-07-22 08:50] LABS: Erythrocyte Sedimentation Rate 6 mm/hr (0-10)
[2024-07-22] MEDS: methylPREDNISolone sod succ 40 mg/mL INJ IVP (08:53)
[2024-07-22 08:58] LABS: Creatinine Clr Calc Pharmacy 154.5956
[2024-07-22] MEDS: infliximab-abda 700 MG in sodium chloride 0.9% 250 ML 300 MG IV (09:20)
[2024-07-22 10:40] VITALS: BP 134/92; PULSE 84; RESP 18; TEMP 36.6; O2SAT 97
== END 2024-08-06 23:59 | disposition home or self-care (01) ==
PROVIDERS: PCP Nurse Practitioner Family; Visit Provider Internal Medicine Rheumatology
DX: L40.0 Psoriasis vulgaris (principal); Z79.899 Other long term (current) drug therapy
CPT/HCPCS: 82565; 85025; 85651; 86140; 96365; 96375; 96413; A4222; J1200; J2919; J7050; Q5104

== ENCOUNTER 2024-09-02 07:48 | Oncology outpatient (recurring) (ONCR) | payer BC, SELFPAY ==
[2024-09-02] MEDS: sodium chloride 0.9% 250 ML 75 ML IV (08:15)
[2024-09-02] MEDS: methylPREDNISolone sod succ 40 mg/mL INJ IVP (08:18)
[2024-09-02] MEDS: diphenhydrAMINE 50 mg/mL SDV 1mL 25 MG IVP (08:20)
[2024-09-02] MEDS: acetaminophen 325 mg Tablet 650 MG PO (08:24)
[2024-09-02] MEDS: infliximab-abda 700 MG in sodium chloride 0.9% 250 ML 250 MG IV (08:53)
[2024-09-02 08:57] VITALS: BP 126/86; PULSE 67; TEMP 36.4; O2SAT 98
[2024-09-02 10:05] VITALS: BP 151/95; PULSE 72; RESP 17; TEMP 36.9; O2SAT 96
== END 2024-09-06 23:59 | disposition home or self-care (01) ==
LOC: ONCMED 07:48
PROVIDERS: PCP Nurse Practitioner Family; Visit Provider Internal Medicine Rheumatology
DX: L40.0 Psoriasis vulgaris (principal); Z79.899 Other long term (current) drug therapy
CPT/HCPCS: 96375; 96413; A4222; J1200; J2919; J7050; J9999; Q5104

== ENCOUNTER → 2024-10-13 15:32 | Outpatient (BNVA) | payer BC, SELFPAY | PROVIDERS: PCP Nurse Practitioner Family; Visit Provider Internal Medicine Rheumatology | DX: Z79.899 Other long term (current) drug therapy (principal) | CPT/HCPCS: 36415; 80076; 82565; 85025; 85651; 86140 ==

== ENCOUNTER → 2025-01-11 10:03 | Outpatient (BNVA) | payer BC, SELFPAY | PROVIDERS: PCP Nurse Practitioner Family; Visit Provider Podiatrist Foot & Ankle Surgery | DX: M79.671 Pain in right foot (principal); M72.2 Plantar fascial fibromatosis | CPT/HCPCS: 73630 ==

== ENCOUNTER 2025-02-16 08:42 | Day surgery (SDC) | payer BC, SELFPAY ==
[2025-02-16 08:54] VITALS: BP 114/77; PULSE 51; RESP 18; TEMP 36.6; O2SAT 97; BMI 44.3
--- NOTE | 2025-02-16 09:17 | ANES.PREANE2 ---
Pre-Anesthetic Assessment Height/Weight: Height 1.75 m Weight 136.078 kg Temp Pulse Resp BP Pulse Ox O2 Del Method 97.9 F 51 L 18 114/77 97 Room Air 02/16/25 08:54 02/16/25 08:54 02/16/25 08:54 02/16/25 08:54 02/16/25 08:54 02/16/25 08:54 Preop Diagnosis: Positive cologuard Operation Date: 02/16/25 10:00 Proposed Procedures p Colonoscopy 13431 G0121 Z12.11(Not Applicable) - Dirk Buitrago MD Familial anesthetic complications: none Was Beta Jorge taken within 24 hours: Yes Was Clonidine taken within 24 hours: N/A Last intake: Intake Last Liquid Date 02/15/25 Last Liquid Time 22:00 Last Solid Date 02/14/25 Last Solid Time 16:00 Social Tobacco and No alcohol Exam alert, oriented x 3, clear to auscultation bilaterally and regular rate & rhythm Airway Cervical ROM: within normal limits Mallampati: Class III Dentition: full Pulmonary Sleep Apnea CV/HEM Atrial Fibrillation and Hypertension Xarelto last dose 02/13 None reported Hepatic None reported GI None reported Metabolic Morbid Obesity [facility] None reported Neuropsych None reported Anesthetic Plan ASA status: 3 Anesthesia: MAC Risk of > 500 ml blood loss (7ml/kg in children): No Medications/Allergies Home Medications ?Medication ?Instructions ?Recorded ?Confirmed ?Last Taken ?Type duloxetine 60 mg capsule,delayed 60 mg PO DAILY 06/23/19 02/10/25 02/15/25 History release hydrocodone 7.5 mg-acetaminophen 1 tab PO BID PRN Pain 06/23/19 02/16/25 02/16/25 History 325 mg tablet tramadol 50 mg tablet 100 mg PO Q8H PRN Pain 06/23/19 02/10/25 02/15/25 History epinephrine 0.3 mg/0.3 mL 0.3 mg IM Q10M PRN Allergic 05/30/20 02/10/25 Unknown History injection, auto-injector (EpiPen) Reaction lisinopril 40 mg tablet 40 mg PO DAILY 05/30/20 02/10/25 02/15/25 History tamsulosin 0.4 mg capsule (Flomax) 0.4 mg PO DAILY 05/30/20 02/10/25 02/15/25 History diphenhydramine 25 1 tab PO .HS PRN Sleep 08/08/21 02/10/25 02/09/25 History mg-acetaminophen 500 mg tablet (Tylenol PM Extra Strength) Night Splint #1 ea 03/19/23 02/08/25 Unknown Rx diltiazem HCl 60 mg tablet 60 mg PO TID 10/16/23 02/10/25 02/16/25 History famotidine 40 mg tablet (Pepcid) 40 mg PO DAILY 10/16/23 02/10/25 02/15/25 History finasteride 5 mg tablet 5 mg PO DAILY 10/16/23 02/10/25 02/15/25 History metoprolol tartrate 50 mg tablet 50 mg PO BID 10/16/23 02/10/25 02/16/25 History rivaroxaban 20 mg tablet (Xarelto) 20 mg PO .SUPPER TIME 10/16/23 02/16/25 02/13/25 History prednisone 10 mg tablet See Rx Instructions .Route 10/13/24 02/10/25 Unknown Rx .COMPLEX #60 tabs prednisone 5 mg tablet 5 mg PO DAILY #90 tabs 10/13/24 02/10/25 02/10/25 Rx risankizumab-rzaa 150 mg/mL 150 mg SUBCUT .[id number] #1 mL 10/13/24 02/10/25 Unknown Rx subcutaneous syringe (Amarai) tizanidine 4 mg tablet 4 mg PO BID PRN muscle spasticity 10/13/24 02/10/25 02/10/25 Rx #60 tabs Allergies Allergy/AdvReac Type Severity Reaction Status Date / Time adalimumab (From Humira) Allergy rash Verified 02/08/25 12:03 Current Medications Generic Name Dose Route Start Last Admin Trade Name Freq PRN Reason Stop Dose Admin Sodium Chloride 1,000 mls @ 15 mls/hr 02/16/25 08:43 02/16/25 09:04 Sodium Chloride 0.9% IV 02/17/25 08:42 15 mls/hr .Q24H PRN Administration COLONOSCOPY FLUIDS PFSH Anesthesia Medical History Plaque psoriasis 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 Pain management contract signed Immunization counseling Encounter for screening for other viral diseases Psoriatic arthritis Psoriasis High risk medication use Inflammatory arthritis Surgical History Hx of tonsillectomy Family History Father Arthritis Denies family history of Lupus (systemic lupus erythematosus) Rheumatoid arthritis Diabetes Hyperlipidemia Social History Smoking and tobacco/nicotine status: tobacco/nicotine user, details unknown (pt chews) smokeless tobacco Quit status (tobacco/nicotine): has quit using Second hand smoke exposure: Yes Alcohol intake: current Alcohol intake frequency: 0-2 Drinks per Day Alcohol type: beer and hard liquor Substance/Drug Use: never Data Anesthesia Cardiac Studies: Echocardiogram 04/17/23 Sestamibi Stress Test (Cardiology) 04/08/23
--- NOTE | 2025-02-16 09:41 | W.PM.OPSUD ---
Surgery/Procedure H&P Update DATE OF PROCEDURE: February 16, 2025 DATE H&P PERFORMED: 01/24/25 H&P UPDATE INFORMATION: I have reviewed H&P completed within last 30 days, I have examined patient prior to procedure and No changes to prior documentation PREOP DIAGNOSIS: Positive cologuard PLANNED PROCEDURE: Operation Date: 02/16/25 10:00 Proposed Procedures p Colonoscopy 33804 G0121 Z12.11(Not Applicable) - Dirk Buitrago MD
[2025-02-16 09:59] VITALS: BP 97/62; PULSE 44; RESP 16; TEMP 36.2; O2SAT 94
[2025-02-16 10:35] VITALS: BP 113/80; PULSE 51; RESP 16; O2SAT 97
== END 2025-02-16 09:38 | disposition home or self-care (01) ==
PROVIDERS: PCP Nurse Practitioner Family; Visit Provider Student in an Organized Health Care Education/Training Program
PROC: 0DJD8ZZ Inspection of Lower Intestinal Tract, Via Natural or Artificial Opening Endoscopic (ICD-10-PCS; CPT 45378; principal; 2025-02-16 10:00)
DX: Z12.11 Encounter for screening for malignant neoplasm of colon (principal); D12.8 Benign neoplasm of rectum; I48.91 Unspecified atrial fibrillation; I10 Essential (primary) hypertension; E66.01 Morbid (severe) obesity due to excess calories; Z68.41 Body mass index [BMI] 40.0-44.9, adult; Z79.891 Long term (current) use of opiate analgesic; F17.220 Nicotine dependence, chewing tobacco, uncomplicated
CPT/HCPCS: 45385; 88305; J2704; J7030

== ENCOUNTER → 2025-03-02 14:44 | Outpatient (BNVA) | payer BC, SELFPAY | PROVIDERS: PCP Nurse Practitioner Family; Visit Provider Internal Medicine Rheumatology | DX: Z79.899 Other long term (current) drug therapy (principal) | CPT/HCPCS: 36415; 80076; 82306; 82565; 85025; 85651; 86140 ==